=== PATIENT | male | born 1975 | race Caucasian/White ===

== ENCOUNTER → 2016-10-19 | Outpatient (CLI) | payer SELFPAY ==
--- NOTE | 2016-10-19 16:26 | MRI ---
EXAM: Brain w/wo Contrast CLINICAL INDICATION: 41-year-old male with headache and vertigo for one month, worse the past few days. COMPARISON: None. TECHNIQUE: Multiplanar, multi-sequence MR imaging of the brain and internal auditory canal pre-and post intravenous administration of gadolinium. FINDINGS: No abnormal signal is seen on the T2, FLAIR or diffusion weighted images. There is no evidence of intracranial hemorrhage, mass or edema. Midline structures are within normal limits. Incidentally noted LEFT frontal developmental venous anomaly, normal anatomic variant. No abnormal post gadolinium enhancement. The ventricles and basal cisterns are normal in size and configuration. Major intracranial flow voids are identified. The paranasal sinuses and mastoid air cells are patent. On the right side, the external auditory canal is patent. The middle ear cavity is clear. The vestibulo-cochlear nerves are seen and appear normal. The inner ear structures, including the semicircular canals, vestibule, and cochlea are unremarkable. The vestibular aqueduct is not enlarged. On the left side, the external auditory canal is patent. The middle ear cavity is clear. The vestibulo-cochlear nerves are seen and appear normal. The inner ear structures, including the semicircular canals, vestibule, and cochlea are unremarkable. The vestibular aqueduct is not enlarged. The mastoid air cells are clear. The LEFT anterior inferior cerebellar artery loops into the porus acusticus. There is no abnormal enhancement in either internal auditory canal or along the course of the facial nerves. IMPRESSION: 1. No specific MRI findings noted to suggest etiology of the patient's symptoms. Electronically signed by: Lynn Shah MD 10/19/2016 4:26 PM CDT Workstation: [id number]
== END | disposition home or self-care (01) ==
LOC: MRI 08:37
PROVIDERS: ATTEND Family Medicine
DX: R51 Headache (principal); H81.10 Benign paroxysmal vertigo, unspecified ear

== ENCOUNTER → 2016-10-19 | Outpatient (CLI) | payer OTHER | END | disposition home or self-care (01) | LOC: GMAL 11:56 | PROVIDERS: ATTEND Family Medicine | DX: D51.3 Other dietary vitamin B12 deficiency anemia (principal); E29.8 Other testicular dysfunction; R53.82 Chronic fatigue, unspecified ==

== ENCOUNTER → 2019-07-10 | Outpatient (CLI) | payer BC, OTHER | DX: D86.9 Sarcoidosis, unspecified (principal) ==